=== PATIENT | male | born 1980 | race Caucasian/White ===

== ENCOUNTER 2017-11-10 22:57 | Emergency (ER) | payer OTHER ==
[2017-11-10] MEDS ORDERED: SODIUM CHLORIDE 0.9% 1,000 ML IV ONE (23:19)
--- NOTE | 2017-11-10 23:40 | ED ---
General Adult HPI - General Chief complaint: Chest Pain Stated complaint: SOB/Cough Time Seen by Provider: 11/10/17 23:08 Source: patient Mode of arrival: wheelchair Limitations: no limitations - History of Present Illness Initial comments: This is a 37-year-old male with a history of hypertension who presents emergent department for syncopal episode. The patient states that he was recently diagnosed with tracheobronchitis and completed a course of antibiotics. He has had a consistent and chronic cough ever since his diagnosis. He states he was playing cards tonight and suddenly coughed forcefully. He then felt lightheaded and passed out. His significant other was at bedside and witnessed the episode. Apparently only lasted a few seconds before he came to. The patient states that he has a mild headache at this time however denies any shortness of breath or lightheadedness currently. He denies any nausea or vomiting. He states that he does have some chest discomfort however it's been chronic for the last month. He did have his heart evaluated approximately one year ago and was told it was fine. The patient doesn't history of high blood pressure however has not been taking his losartan for the last couple of days because he needed a refill. He just got it refilled today. He denies any other acute complaints at this time. - Related Data Home Medications Medication Instructions Recorded Confirmed Albuterol Inhaler [Ventolin Hfa 3 puff INHALATION RT-Q4H PRN 11/10/17 11/10/17 Inhaler] Albuterol Nebulized [Ventolin 2.5 mg INHALATION RT-QID PRN 11/10/17 11/10/17 Nebulized] HYDROcodone/APAP 10-325MG [[place] 1 tab PO Q4HR PRN 11/10/17 11/10/17 10-325] Losartan Potassium [Cozaar] 25 mg PO DAILY 11/10/17 11/10/17 Allergies Allergy/AdvReac Type Severity Reaction Status Date / Time No Known Allergies Allergy Verified 11/10/17 23:08 Review of Systems ROS Statement: Those systems with pertinent positive or pertinent negative responses have been documented in the HPI. ROS Other: All systems not noted in ROS Statement are negative. Past Medical History Past Medical History: Asthma, Hypertension Additional Past Medical History / Comment(s): chronic back pain History of Any Multi-Drug Resistant Organisms: None Reported Past Surgical History: Orthopedic Surgery Past Psychological History: No Psychological Hx Reported Smoking Status: Current every day smoker Past Alcohol Use History: Occasional Past Drug Use History: None Reported General Exam - General Exam Comments Initial Comments: Constitutional: Awake alert Appears comfortable Head: Normocephalic atraumatic Eyes: no conjunctival injection No scleral icterus EOMI Neck: No JVD Supple Heart: Regular rate rhythm normal S1-S2 no murmurs Lungs: Clear to auscultation bilaterally No wheezing No rales Abdomen: Soft nondistended nontender Extremities: Non edematous DP pulses intact Radial pulses intact Neuro: A&Ox3 No focal neurologic deficits Psych: Appropriate mood and affect Limitations: no limitations Course Vital Signs 11/10/17 23:00 Temperature 98.6 F Pulse Rate 101 H Respiratory 18 Rate Blood Pressure 151/83 O2 Sat by Pulse 96 Oximetry EKG Findings - EKG Comments: EKG Findings:: EKG showing normal sinus rhythm with a rate of 94. No abnormal ST segment changes or T-wave inversion. QTC is 437. Other intervals normal. No ectopy. Medical Decision Making - Medical Decision Making This is a 37-year-old male who presents emergency department for a syncopal episode. Patient was monitored for over an hour no arrhythmias were found on the monitor. The patient felt improved after some fluids. Troponin negative. EKG unremarkable. The patient has no significant risk factors for cardiac arrhythmia. This time I feel the patient can go home. He needs close follow- up with primary doctor. Told to return if he has any worsening or changing symptoms. All questions were answered. - Lab Data Result diagrams: 11/11/17 00:13 11/11/17 00:13 Lab Results 11/11/17 11/11/17 11/11/17 Range/Units 00:13 00:13 00:13 WBC 10.7 H (3.8-10.6) k/uL RBC 4.91 (4.30-5.90) m/uL Hgb 14.8 (13.0-17.5) gm/dL Hct 44.7 (39.0-53.0) % MCV 91.1 (80.0-100.0) fL MCH 30.2 (25.0-35.0) pg MCHC 33.1 (31.0-37.0) g/dL RDW 14.1 (11.5-15.5) % Plt Count 206 (150-450) k/uL Neutrophils % 56 % Lymphocytes % 33 % Monocytes % 5 % Eosinophils % 2 % Basophils % 1 % Neutrophils # 5.9 (1.3-7.7) k/uL Lymphocytes # 3.5 (1.0-4.8) k/uL Monocytes # 0.6 (0-1.0) k/uL Eosinophils # 0.2 (0-0.7) k/uL Basophils # 0.1 (0-0.2) k/uL Sodium 140 (137-145) mmol/L Potassium 4.5 (3.5-5.1) mmol/L Chloride 104 (98-107) mmol/L Carbon Dioxide 25 (22-30) mmol/L Anion Gap 11 mmol/L BUN 19 (9-20) mg/dL Creatinine 0.90 (0.66-1.25) mg/dL Est GFR (MDRD) Af Amer >60 (>60 ml/min/1.73 sqM) Est GFR (MDRD) Non-Af >60 (>60 ml/min/1.73 sqM) Glucose 119 H (74-99) mg/dL Calcium 9.6 (8.4-10.2) mg/dL Magnesium 2.0 (1.6-2.3) mg/dL Total Bilirubin 0.6 (0.2-1.3) mg/dL AST 48 (17-59) U/L ALT 72 (21-72) U/L Alkaline Phosphatase 61 (38-126) U/L CK-MB (CK-2) 3.4 H* (0.0-2.4) ng/mL Troponin I <0.012 (0.000-0.034) ng/mL Total Protein 7.2 (6.3-8.2) g/dL Albumin 4.3 (3.5-5.0) g/dL Disposition Clinical Impression: Syncope Disposition: HOME SELF-CARE Condition: Stable Instructions: Syncope (ED) Referrals: Roger Corea MD [Primary Care Provider] - 1-2 days
[2017-11-11 00:33] LABS: Basophils # (A) 0.1 k/uL (0-0.2); Basophils % (A) 1 %; Eosinophils # (A) 0.2 k/uL (0-0.7); Eosinophils % (A) 2 %; HCT 44.7 % (39.0-53.0); HGB 14.8 gm/dL (13.0-17.5); Lymphocytes # (A) 3.5 k/uL (1.0-4.8); Lymphocytes % (A) 33 %; MCH 30.2 pg (25.0-35.0); MCHC 33.1 g/dL (31.0-37.0); MCV 91.1 fL (80.0-100.0); Mean Platelet Volume 8.7; Monocytes # (A) 0.6 k/uL (0-1.0); Monocytes % (A) 5 %; Neutrophils # (A) 5.9 k/uL (1.3-7.7); Neutrophils % (A) 56 %; Platelet Count 206 k/uL (150-450); RBC 4.91 m/uL (4.30-5.90); RDW 14.1 % (11.5-15.5); WBC 10.7 k/uL (3.8-10.6)
[2017-11-11 00:50] LABS: Anion Gap 11 mmol/L; Calcium 9.6 mg/dL (8.4-10.2); Carbon Dioxide 25 mmol/L (22-30); Chloride 104 mmol/L (98-107); Glucose 119 mg/dL (74-99); Sodium 140 mmol/L (137-145); Total Bilirubin 0.6 mg/dL (0.2-1.3)
[2017-11-11 00:53] LABS: ALT 72 U/L (21-72); AST 48 U/L (17-59); Albumin 4.3 g/dL (3.5-5.0); Alkaline Phosphatase 61 U/L (38-126); Blood Urea Nitrogen 19 mg/dL (9-20); Potassium 4.5 mmol/L (3.5-5.1); Total Protein 7.2 g/dL (6.3-8.2)
--- NOTE | 2017-11-11 00:53 | XR ---
EXAMINATION TYPE: XR chest 2V DATE OF EXAM: 11/11/2017 COMPARISON: NONE HISTORY: Cough TECHNIQUE: Frontal and lateral views of the chest are obtained. FINDINGS: Heart and mediastinum are normal. Lungs are clear. Diaphragm is normal. There are chest le ads. Bony thorax is intact. IMPRESSION: Normal chest
[2017-11-11 01:04] LABS: Troponin I <0.012 ng/mL (0.000-0.034)
[2017-11-11 01:12] LABS: Creatine Kinase MB 3.4 ng/mL (0.0-2.4)
[2017-11-11 01:33] VITALS: RESP 20
[2017-11-11 01:38] VITALS: BP 174/91; PULSE 90; TEMP 97.9
== END 2017-11-11 01:37 | disposition home or self-care (01) ==
LOC: EC 22:57
DX: R55 Syncope and collapse (principal); R07.89 Other chest pain; R05 Cough; I10 Essential (primary) hypertension; F17.200 Nicotine dependence, unspecified, uncomplicated; Z79.899 Other long term (current) drug therapy
CPT/HCPCS: 36415; 71020; 80053; 82553; 83735; 84484; 85025; 93005; 99285

== ENCOUNTER → 2018-09-05 | Outpatient (CLI) | payer OTHER ==
--- NOTE | 2018-09-05 10:03 | US ---
EXAMINATION TYPE: US carotid duplex BILAT DATE OF EXAM: 09/05/2018 COMPARISON: NONE CLINICAL HISTORY: R55 Syncope, I10 Hypertension. EXAM MEASUREMENTS: RIGHT: Peak Systolic Velocity (PSV) cm/sec ----- Right CCA: 110.7 ----- Right ICA: 90.8 ----- Right ECA: 83.1 ICA/CCA ratio: 0.8 RIGHT: End Diastole cm/sec ----- Right CCA: 28.3 ----- Right ICA: 39.0 ----- Right ECA: 14.2 LEFT: Peak Systolic Velocity (PSV) cm/sec ----- Left CCA: 81.8 ----- Left ICA: 74.4 ----- Left ECA: 93.6 ICA/CCA ratio: 0.9 LEFT: End Diastole cm/sec ----- Left CCA: 23.4 ----- Left ICA: 36.5 ----- Left ECA: 20.4 VERTEBRALS (direction of flow): Right Vertebral: Antegrade Left Vertebral: Antegrade Rhythm: Normal Patient has thick neck, and pulsatile vessels, technically difficult study. No evident plaque, no significant velocity elevations. IMPRESSION: 1. No diagnostic evidence of significant hemodynamic stenosis as visualized. Criteria for Assigning % of Stenosis / Diameter reduction (Estimation based on the indirect measurements of the internal carotid artery velocities (ICA PSV). 1. Normal (no stenosis)=ICA PSV < 125 cm/s: ratio < 2.0: ICA EDV<40 cm/s. 2. Less than 50% stenosis=ICA PSV < 125 cm/s: ratio < 2.0: ICA EDV<40 cm/s. 3. 50 to 69% stenosis=ICA PSV of 125 to 230 cm/s: ration 2.0 ? 4.0: ICA EDV 40-100 cm/s. 4. Greater than 70% stenosis to near occlusion= ICA PSV > 230 cm/s: ratio > 4.0: ICA EDV > 100 cm/s. 5. Near occlusion= ICA PSV velocities may be low or undetectable: variable ratio and ICA EDV. 6. Total occlusion=unable to detect flow.
--- NOTE | 2018-09-05 10:09 | CT ---
EXAMINATION TYPE: CT brain w con DATE OF EXAM: 09/05/2018 COMPARISON: None HISTORY: Syncope CT DLP: 1239 mGycm Automated Exposure Control for Dose Reduction was Utilized. TECHNIQUE: CT scan of the head is performed with IV contrast.,CT scan of the head is performed withou t and with with IV Contrast, patient injected with 100 mL of Isovue 300. FINDINGS: Ventricular system is midline. Cerebellar tonsils are slightly low-lying in position. Intraorbital structures are intact. No midline shift. No mass effect. No enhancing masses postcontras t administration. Mild focal prominence the basilar tip. Recommend MRA to assess for small aneurysm. IMPRESSION: 1. Low-lying cerebellar tonsils. MRI follow-up recommended to assess for Chiari malformation. 2. There is focal prominence the tip of the basilar artery. Recommend MRA [place]. 3. Findings compatible with chronic sinusitis
--- NOTE | 2018-09-05 16:59 | EEG ---
ELECTROENCEPHALOGRAM REPORT DATE OF SERVICE: 09/05/2018. REASON FOR TESTING: Syncope. DESCRIPTION OF THE PROCEDURE: This EEG was performed using a 21 channel digital electroencephalograph, following international 10-20 system. DESCRIPTION OF THE RECORDING: From the beginning of the tracing, and with patient's eyes closed, the background rhythm was mostly consisting of 8-9 Hz alpha frequency in the posterior occipital leads. No obvious asymmetry is seen. Occasional movement and muscle artifacts are seen. Photic stimulation was performed with no driving response seen. No pathological waves were elicited. Hyperventilation was not performed. The patient does reach stage II of sleep during the tracing and occasional sleep spindles are seen. No epileptiform discharges were seen. His EKG lead showed a regular rate and rhythm. INTERPRETATION: This asleep and awake EEG can be considered within normal limits. There was no asymmetry seen. No epileptiform discharges were noticed. The absence of epileptiform discharges does not rule out the diagnosis of epilepsy; therefore clinical correlation is recommended. Thank you, Dr. Corea for allowing me to participate in the care of your patient. If you have any questions, please feel free to contact me. MMODL / IJN: [id number] /
== END | disposition home or self-care (01) ==
LOC: NEUROMAIN 07:06
PROVIDERS: ATTEND Family Medicine
DX: G93.89 Other specified disorders of brain (principal); R55 Syncope and collapse; I10 Essential (primary) hypertension
CPT/HCPCS: 95819; 93880; 70460; Q9967

== ENCOUNTER → 2018-10-18 | Outpatient (CLI) | payer OTHER ==
--- NOTE | 2018-10-19 03:30 | MR ---
EXAMINATION TYPE: MR angio head wo con DATE OF EXAM: 10/18/2018 COMPARISON: None HISTORY: Arnold-Chiari malformation TECHNIQUE: Time of flight images focusing on the [place] were performed without contrast. FINDINGS: There is arterial flow in the distal internal carotid arteries. There is arterial flow in t he vertebrobasilar artery system. Right vertebral artery is larger than the left. There is arterial flow in the anterior middle and posterior cerebral arteries. The posterior communic ating arteries are diminutive. I see no evidence of aneurysm or neovascularity. There is no mass effe ct. There is no evidence of spasm or stenosis. IMPRESSION: Normal MR angiogram of the brain.
--- NOTE | 2018-10-19 03:40 | MR ---
EXAMINATION TYPE: MR brain wo/w con DATE OF EXAM: 10/18/2018 COMPARISON: None HISTORY: Arnold-Chiari syndrome. TECHNIQUE: Multiplanar, multisequence images of the brain and brainstem is performed without and with IV contras t, utilizing 15 mL intravenous . Gadolinium FINDINGS: Ventricles of normal size. There is no mass effect nor midline shift. There is no sign of intracrania l hemorrhage. There is no evidence of cortical infarct. Corpus callosum appears normal. Sella turcica is within normal limits. There is mucosal thickening in the maxillary ethmoid frontal sinuses. Also sphenoid sinus. Lamb-white matter structures have fairly normal signal pattern. There is no evidence of cortical infa rct. Brainstem is intact. The cerebellum is in normal position. I see no evidence of Chiari malformat ion. Fourth ventricle appears normal. There is normal contrast opacification of the venous sinuses. I see no pathologic intracranial enhancement. IMPRESSION: Negative MR scan of the brain. Pansinusitis noted.
== END ==
LOC: RADMRIMAIN 19:01
PROVIDERS: ATTEND Family Medicine
DX: Q07.00 Arnold-Chiari syndrome without spina bifida or hydrocephalus (principal)
CPT/HCPCS: 70544; 70553

== ENCOUNTER 2019-06-27 11:06 | Day surgery (SDC) | payer OTHER ==
[2019-06-21 10:31] VITALS: BMI 49.5
[~2019-06-27 11:06] MED LIST: LACTATED RINGERS 1,000 ML IV SCH
[2019-06-27 11:22] VITALS: TEMP 96.8
[2019-06-27] MEDS ORDERED: PROPOFOL 10 MG/ML 20 ML VIAL IV ONE (11:37)
[2019-06-27] MEDS ORDERED: KETAMINE 10 MG/ML 20 ML VIAL ONE (11:37)
--- NOTE | 2019-06-27 11:55 | P.OP ---
Date of Procedure: 06/27/19 Preoperative Diagnosis: Screening Family history of colon cancer Postoperative Diagnosis: Normal colon Internal hemorrhoids Procedure(s) Performed: Colonoscopy Surgeon: Heraclio Hurtado Pathology: none sent Condition: stable Disposition: same day Indications for Procedure: 39-year-old male presents for a screening colonoscopy. His brother was recently diagnosed with colon cancer at age 42. Secondary to this, the patient is planned for screening colonoscopy. He denied any blood in his stool. He was explained risks, benefits and alternatives. He did provide consent prior to attending the endoscopy suite. Operative Findings: Normal colon Internal hemorrhoids Description of Procedure: The patient was brought into the endoscopy suite. He was then placed in left lateral decubitus position and adequate sedation was achieved using conscious sedation. A digital rectal exam was performed and mild internal hemorrhoids were palpated. An endoscope was then placed in the rectum and advanced to the cecum as identified by landmarks including the appendiceal orifice and the ileocecal valve. The prep was fair. The colonoscope was then slowly withdrawn, examining for any mucosal abnormalities. The cecum, ascending, transverse, descending and sigmoid colon were visualized adequately. There were no large neoplastic lesions noted throughout the colon. There was no evidence of polyps throughout the colon. There was no evidence of significant diverticulosis of the colon. Retroflexion was performed in the rectum and mild internal hemorrhoids were visible. Excess air was removed. The colonoscope withdrawn and the procedure terminated. The patient was then transferred to the recovery unit in stable condition. Repeat colonoscopy should be performed in 5 years due to family history of colon cancer.
[2019-06-27 12:18] VITALS: BP 128/67; PULSE 82; RESP 18
== END 2019-06-27 12:25 | disposition home or self-care (01) ==
LOC: ORWHC2ENDO 11:06
PROVIDERS: ATTEND Surgery
DX: Z12.11 Encounter for screening for malignant neoplasm of colon (principal); Z80.0 Family history of malignant neoplasm of digestive organs; K64.8 Other hemorrhoids; J44.9 Chronic obstructive pulmonary disease, unspecified; I10 Essential (primary) hypertension; M19.90 Unspecified osteoarthritis, unspecified site; F17.200 Nicotine dependence, unspecified, uncomplicated; E66.01 Morbid (severe) obesity due to excess calories; Z68.43 Body mass index [BMI] 50.0-59.9, adult; Z79.82 Long term (current) use of aspirin; Z79.891 Long term (current) use of opiate analgesic; Z79.899 Other long term (current) drug therapy; Z88.5 Allergy status to narcotic agent; Z96.659 Presence of unspecified artificial knee joint; Z82.49 Family history of ischemic heart disease and other diseases of the circulatory system; Z83.3 Family history of diabetes mellitus; Z83.79 Family history of other diseases of the digestive system
CPT/HCPCS: G0105; J2704